=== PATIENT | male | born 1945 | race Caucasian/White ===

== ENCOUNTER → 2017-05-21 | Outpatient (CLI) | payer OTHER | LOC: CIMAGING 15:17 | PROVIDERS: ATTEND Family Medicine | DX: J40 Bronchitis, not specified as acute or chronic (principal); R91.8 Other nonspecific abnormal finding of lung field | CPT/HCPCS: 71046-PO ==

== ENCOUNTER → 2017-05-23 | Outpatient (CLI) | payer OTHER ==
[~2017-05-23] MED LIST: IOPAMIDOL (ISOVUE-300) 100 ML BTL ONE
== END ==
LOC: CIMAGING 13:38
PROVIDERS: ATTEND Family Medicine
DX: R91.8 Other nonspecific abnormal finding of lung field (principal)
CPT/HCPCS: 71260-PO; 82565-PO; Q9967

== ENCOUNTER 2017-06-19 09:39 | Day surgery (SDC) | payer OTHER ==
[2017-06-19] MEDS ORDERED: LIDOCAINE 1% 300 MG/30 ML SDV ONE (09:55)
[2017-06-19] MEDS ORDERED: BENZOCAINE UNIT DOSE SPRAY HURRICAINE MM ONE (09:55)
[2017-06-19] MEDS ORDERED: LIDOCAINE 2% JELLY 5 ML TUBE ONE (09:55)
[2017-06-19] MEDS ORDERED: ALBUTEROL 3 ML DEYVIAL ONE (09:55)
[2017-06-19] MEDS ORDERED: LIDOCAINE HCL 4% TOPICAL SOLN 50ML ONE (10:09)
[2017-06-19] MEDS ORDERED: NS 500 ML IV ONE (10:19)
--- NOTE | 2017-06-19 10:52 | PDPROPOC ---
Sedation Plan of Care Sedation Plan of Care: vital signs stable, mental status noted, patient educated of risks, benefits, alternatives, patient can tolerate sedation ASA Classification: ASA 2 Planned drugs: fentanyl, midazolam Mallampati Score: Class 2 Mallampati Reference Image: Patient passed 3-3-2 rule?: Yes
[2017-06-19] MEDS ORDERED: fentaNYL 100 MCG/2 ML INJ ONE (11:05)
[2017-06-19] MEDS ORDERED: EPINEPHrine 1 MG/10 ML SYR IVP ONE (11:05)
[2017-06-19] MEDS ORDERED: MIDAZOLAM 2 MG/2 ML VIAL ONE (11:05)
--- NOTE | 2017-06-19 11:18 | POSTOPPROG ---
Post Op Note Date of Operation: 06/19/17 Surgeon: Roger Zhong Anesthesia: IV Sedation Pre-op Diagnosis: ILD Post-op Diagnosis: ILD Indication: ILD Findings: normal airways Inf/Abcess present in the surg proc area at time of surgery?: No EBL: Minimal Specimen(s): transbronchial bxs, BAL RLL
--- NOTE | 2017-06-19 11:35 | BVPULMO ---
Formerly [facility], [facility] Surgical Services- Pulmonology Patient Name: Reji Hoffmann Procedure Date: 06/19/2017 11:14 AM Patient Type: Outpatient Attending MD/ER Physician: Roger Zhong MD Procedure: Bronchoscopy Indications: Interstitial lung disease Providers: Roger Zhong MD Medicines: Fentanyl 100 mcg IV, Midazolam 4 mg IV, Lidocaine 1% applied to cords 2 mL, Lidocaine 1% subglottic space 4 mL, Oxygen 6 L/min Complications: No immediate complications Procedure: After informed consent, a time out was performed. N95 masks were worn, and the procedure was done in a negative pressure room. The patient was given appropria te topical anesthesia and intravenous sedation. The fiberopic bronchoscope was pas sed via a bite block orally into the larynx and subsequently into the lower trachea bronchial tree. Throughout the procedure, the patient's blood pressure, pulse, and oxygen saturations were monitored continuously. The Bronchoscope (Video) was introduced through the mouth and advanced to the tracheobronchial tree. The procedure was accomplished without difficulty. The patient tolerated the proced ure well. The total duration of the procedure was 20 minutes. Total fluoroscopy solomon e was 1 minute. Findings: The oropharynx appears normal. The larynx appears normal. The vocal cords appea r normal. The subglottic space is normal. The trachea is of normal caliber. The c bernadette is sharp. The tracheobronchial tree was examined to at least the first subsegme ntal level. Bronchial mucosa and anatomy are normal; there are no endobronchial lesi ons, and no secretions. Transbronchial biopsies of a lesion were performed in the medial basal segment of the right lower lobe and in the anterior basal segment of the right lower lobe using alligator forceps and sent for cell count, bacterial culture, viral smears & culture, and fungal & AFB analysis and histopathology examination. The procedur e was guided by fluoroscopy. Transbronchial biopsy technique was selected because the sampling site was not visible endoscopically. The sampling device penetrated th e full thickness of the bronchial wall to obtain the biopsy of lung tissue. Eight biopsy passes were performed. Six biopsy samples were obtained. Estimated blood loss: minimal. Bronchoalveolar lavage was performed in the right lower lobe of the lung and se nt for cell count, bacterial culture, viral smears & culture, and fungal & AFB gasper lysis and cytology. 80 mL of fluid were instilled. 40 mL were returned. The return wa s bloody. There were no mucoid plugs in the return fluid. Post Op Diagnosis: - Interstitial lung disease - The examination was normal. - Transbronchial lung biopsies were performed. - Bronchoalveolar lavage was performed. Estimated Blood Loss: Estimated blood loss: none. Recommendation: - Await BAL and biopsy results. - Follow up with bronchoscopist in 2 weeks. Attending Participation: I personally performed the entire procedure. Roger Zhong MD Roger Zhong MD 06/19/2017 11:35:30 AM This report has been signed electronicallyThomas MD Farheen Number of Addenda: 0 Note Initiated On: 06/19/2017 11:14 AM [email or web address]
[2017-06-19 11:41] VITALS: BP 137/89
[2017-06-19] MEDS ORDERED: fentaNYL 100 MCG/2 ML INJ IVP ONE (11:42)
[2017-06-19] MEDS ORDERED: MIDAZOLAM 2 MG/2 ML VIAL IVP ONE (11:42)
== END 2017-06-19 11:37 | disposition home or self-care (01) ==
LOC: FSGY 09:39
PROVIDERS: ATTEND Internal Medicine Pulmonary Disease
DX: J42 Unspecified chronic bronchitis (principal)
CPT/HCPCS: J2250; J3010; J7613

== ENCOUNTER → 2017-10-03 | Outpatient (CLI) | payer OTHER | LOC: FIMAGING 08:01 | PROVIDERS: ATTEND Internal Medicine Pulmonary Disease | DX: J98.4 Other disorders of lung (principal); I25.84 Coronary atherosclerosis due to calcified coronary lesion ==